=== PATIENT | male | born 1955 | race Caucasian/White ===

== ENCOUNTER 2023-08-25 16:14 | Observation (INO) ==
[2023-08-25] MEDS ORDERED: VENTOLIN HFA IH ONE (17:12)
[2023-08-25] MEDS ORDERED: MUCINEX PO ONE (17:12)
--- NOTE | 2023-08-25 17:14 | ED.PDOC ---
General ED Provider: Dr. BAIRON FONSECA DO Chief Complaint: Respiratory Complaint Stated Complaint: Patient is a 67 yo M here for sob patient reports 2 days of symptoms No falls or injuries No recent surgeries no hemoptysis He quit smoking in 2006, no home oxygen no wheezing Patient stable speaking in full senteces on room air spo2 92% improved to 95% with 2 L Time Seen by Provider: 08/25/23 17:05 Primary Care Provider: SONDRA MASCORRO Nursing and Triage Documentation Reviewed and Agree: Yes What is Opioid Naive?: *Opioid Naive implies the patient is not already taking opioids or not chronically receiving opioids on a daily basis. *PRN dosing is not "usually" associated with tolerance. *Patients are at higher risk of over-sedation and aspiration. What is Opioid Tolerant?: *Opioid Tolerance implies less than the expected response to an opioid. *Acquired tolerance is defined by the patient taking 60mg of oral morphine daily (or equianalgesic dose of another opioid) for 1 week or more. *Often associated with chronic pain. *May take more than usual dose to achieve desired pain control. Review of Systems Review Of Systems Constitutional: Denies Chills or Fever Eyes: Denies Blindness or Foreign body sensation Ears, Nose, Mouth, Throat: Denies Ear pain, Nose pain, Mouth swelling, Loose teeth or Throat pain Respiratory: Reports Shortness of Breath; Denies Cough or Wheezing Cardiac: Denies Chest pain, Palpitations or Syncope GI: Denies Abdominal pain, Constipated or Diarrhea : Denies Burning or Discharge Musculoskeletal: Denies Back pain or Muscle stiffness Skin: Denies Bruising or Dryness Neurological: Denies Anxiety or Depressed Endocrine: Reports No symptoms Hematologic/Lymphatic: Reports No symptoms All Other Systems: Reviewed and Negative Physical Exam Physical Exam Appearance: Reports Well-appearing and Obese Ill-appearing: Not Applicable Pain Distress: Not Applicable Eyes: Reports ERICA and EOMI ENT: Reports Ears normal, Nose normal and Oropharynx normal Neck: Supple Respiratory: Reports Airway patent and Breath sounds clear; Denies Wheezes or Retractions Cardiovascular: Reports RRR and Pulses normal GI/: Reports Soft and Nontender Musculoskeletal: Reports Normal strength and ROM intact Skin: Reports Warm and Dry Neurological: Reports Sensation intact and Motor intact Psychiatric: Reports Affect appropriate and Mood appropriate Interpretation EKG Interpretation EKG Interpretation By: ED Physician Time of EKG #1: 17:34 Interpretation: NSR rate 93 no stemi QT wnl Course Course 08/25/23 17:44 08/25/23 17:44 Orders, Labs, Meds: Lab Review 08/25/23 08/25/23 08/25/23 17:21 17:33 17:44 WBC 7.94 RBC 5.29 Hgb 15.3 Hct 46.8 MCV 88.5 MCH 28.9 MCHC 32.7 RDW Coeff of Cynthia 13.4 Plt Count 308 Immature Gran % (Auto) 0.4 Neut % (Auto) 67.7 Lymph % (Auto) 19.4 [place] % (Auto) 7.8 Eos % (Auto) 4.2 Baso % (Auto) 0.5 Neut # (Auto) 5.4 Lymph # (Auto) 1.5 [place] # (Auto) 0.6 Eos # (Auto) 0.3 Baso # (Auto) 0.0 Immature Gran # (Auto) 0.0 Puncture Site [place] Excess 3.3 H O2 Saturation 93.4 L ABG pH 7.48 H ABG pCO2 36.0 ABG pO2 63.0 L ABG HCO3 26.8 ABG Total CO2 27.9 H Reinier Test Pos Hemoglobin 1.0 Oxyhemoglobin 90.6 L Carboxyhemoglobin 2.5 H Total Hemoglobin 15.5 FiO2 % 21.0 Sodium 135.8 Potassium 3.80 Chloride 97.0 L Carbon Dioxide 31.4 H Anion Gap 11.20 BUN 10.2 Creatinine 0.84 Estimated GFR (MDRD) 91.00 BUN/Creatinine Ratio 12.14 Glucose 177.5 H Lactic Acid 1.58 Calcium 9.72 Total Bilirubin 0.97 AST 100.3 H ALT 122.9 H Alkaline Phosphatase 120.0 H Total Creatine Kinase 111.3 Troponin I < 0.012 Total Protein 8.97 H Albumin 4.66 Globulin 4.31 Albumin/Globulin Ratio 1.08 Influ A Molecular Assay Negative by naat Influ B Molecular Assay Negative by naat RSV Antigen Negative by naat SARS CoV-2 RNA Rapid CARLA Negative Orders Category Date Time Status ADMIT OBSERVATION [PLACE PATIENT OBSERVATION] .TO ADMISSION 08/25/23 19:58 Active MEDSURG (MONITORED BED) ABG DRAW REQUEST Stat CARDIO 08/25/23 17:23 Completed EKG-(ED ONLY) Stat CARDIO 08/25/23 17:22 Completed NEBULIZER TREATMENT Routine CARDIO 08/25/23 20:13 Ordered OXYGEN Routine CARDIO 08/25/23 20:12 Ordered ACTIVITY .Early Mobilization for VTE Prevention CARE 08/25/23 20:11 Active GIVE HS SNACK 2100 CARE 08/25/23 20:12 Active INTAKE & OUTPUT Q8HR CARE 08/25/23 20:11 Active NPO REMINDER: IMAGING ONCE CARE 08/25/23 17:22 Active TELEMETRY MONITORING TELE CARE 08/25/23 19:58 Active VITAL SIGNS Q4HR CARE 08/25/23 20:11 Active ADA 1800 HALLE. DIET DIETARY 08/26/23 Breakfast Ordered HS SNACK DIETARY 08/25/23 Dinner Ordered ABG COOX Stat LAB 08/25/23 17:33 Completed BLOOD CULTURE Stat LAB 08/25/23 20:04 Received CBC W/ AUTO DIFF DAILY@0600 LAB 08/26/23 06:00 Ordered CBC W/ AUTO DIFF DAILY@0600 LAB 08/27/23 06:00 Ordered CBC W/ AUTO DIFF Stat LAB 08/25/23 17:44 Completed COMPREHENSIVE METABOLIC PANEL DAILY@0600 LAB 08/26/23 06:00 Ordered COMPREHENSIVE METABOLIC PANEL DAILY@0600 LAB 08/27/23 06:00 Ordered COMPREHENSIVE METABOLIC PANEL Stat LAB 08/25/23 17:44 Completed CREATINE KINASE Stat LAB 08/25/23 17:44 Completed FLU A & B MOLECULAR [FLU A/B MOLECULAR] Stat LAB 08/25/23 17:21 Completed LACTIC ACID Stat LAB 08/25/23 17:44 Completed RSV Stat LAB 08/25/23 17:21 Completed SARS COV-2 RNA RAPID CARLA Stat LAB 08/25/23 17:21 Completed TROPONIN I Stat LAB 08/25/23 17:44 Completed Acetaminophen [Tylenol] Meds 08/25/23 20:11 Active 650 mg PO Q4H PRN Albuterol Sulfate 0.083% Neb [Albuterol 0.083% Neb] Meds 08/25/23 20:11 Active 2.5 mg NEB RTQID PRN Albuterol Sulfate [Ventolin Hfa] Meds 08/25/23 17:12 Discontinued 2 puff IH ONCE ONE Azithromycin Inj [Zithromax] 500 mg Meds 08/25/23 19:46 Discontinued 0.9 % Sodium Chloride [Sodium Chloride] 250 ml IV ONCE Azithromycin Inj [Zithromax] 500 mg Meds 08/26/23 20:00 Active 0.9 % Sodium Chloride [Sodium Chloride] 250 ml IV Q24H Ceftriaxone/D5w 1 gm Premix [Rocephin 1 gm/50 ml D5w] Meds 08/25/23 19:46 Discontinued 1 gm in 50 ml IV ONCE Ceftriaxone/D5w 1 gm Premix [Rocephin 1 gm/50 ml D5w] Meds 08/26/23 20:00 Active 1 gm in 50 ml IV Q24H Guaifenesin [Mucinex] Meds 08/25/23 17:12 Discontinued 600 mg PO ONCE ONE Ipratropium/Albuterol Neb [Duoneb] Meds 08/26/23 00:00 Active 3 ml NEB RTQ6H Methylprednisolone Sod Succ/Pf [Solu-Medrol 40 mg] Meds 08/25/23 20:30 Active 40 mg IVP Q8H Ondansetron HCl/Pf [Zofran 4 mg/2 ml] Meds 08/25/23 20:11 Active 4 [address] IVP Q[address]H PRN CT CHEST PE PROTOCOL Stat RADS 08/25/23 17:22 Completed Medications Generic Name Dose Route Start Last Admin Trade Name Freq PRN Reason Stop Dose Admin Acetaminophen 650 mg 08/25/23 20:11 Acetaminophen 325 Mg Tablet PO Q4H PRN Mild Pain Albuterol Sulfate 2.5 mg 08/25/23 20:11 Albuterol Sulfate 0.083% Vial.Neb NEB RTQID PRN Wheezing Albuterol/Ipratropium 3 ml 08/26/23 00:00 Ipratropium/Albuterol Vial.Neb NEB RTQ6H JAYE CEFTRIAXONE/D5W 1 GM PREMIX 1 gm in 50 mls @ 75 mls/hr 08/26/23 20:00 Rocephin 1 Gm/50 Ml D5w IV 08/29/23 19:59 Q24H JAYE Azithromycin 500 mg/ Sodium 250 mls @ 250 mls/hr 08/26/23 20:00 Chloride IV 08/29/23 19:59 Q24H JAYE Methylprednisolone Sodium Succinate 40 mg 08/25/23 20:30 08/25/23 20:43 Methylprednisolone Sod Succ/Pf 40 Mg/Ml Vial IVP 40 mg Q8H JAYE Administration Ondansetron HCl 4 mg 08/25/23 20:11 Ondansetron Hcl/Pf 4 Mg/2 Ml Sdv IVP Q6H PRN Nausea / Vomiting Discontinued Medications Generic Name Dose Route Start Last Admin Trade Name Freq PRN Reason Stop Dose Admin Albuterol Sulfate 2 puff 08/25/23 17:12 08/25/23 17:56 Albuterol Sulfate 8 Gm Inhaler IH 08/25/23 17:13 2 puff ONCE ONE Administration Guaifenesin 600 mg 08/25/23 17:12 08/25/23 17:56 Guaifenesin 600 Mg Tablet.Er PO 08/25/23 17:13 600 mg ONCE ONE Administration CEFTRIAXONE/D5W 1 GM PREMIX 1 gm in 50 mls @ 100 mls/hr 08/25/23 19:46 08/25/23 20:40 Rocephin 1 Gm/50 Ml D5w IV 08/25/23 20:15 100 mls/hr ONCE ONE Administration Azithromycin 500 mg/ Sodium 250 mls @ 250 mls/hr 08/25/23 19:46 Chloride IV 08/25/23 20:45 ONCE ONE Vital Signs: Temp Pulse Resp BP Pulse Ox 08/25/23 17:12 97.6 F 99 18 171/86 H 90 L MDM: patient is a 67 yo M here for sob Patient afebrile and hypoxic 92% improved to 95%+ with 2 L NC Hx from patient chart review by me Exam concerning for hypoxia 3+ labs and 2 image results reviewed by me Consults to Hospitalist agree with admission for BL pneumonia with hypoxia WDX: BL Pneumonia, hypoxia, acute moderate complexity DDX: I considered shock, Covid 19, PE but these are less likely SDOH: Patient will improve with further care while admitted All questions answered patient admitted stable on 2 L NC Rocephin and azithromycin administered in the ER Discharge Plan Discharge Patient Disposition: PLACED OBSERVATION Discharge Problem: Hypoxia, Discomfort, Weakness, Pneumonia Did you review [place] 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
[2023-08-25 17:38] LABS: SARS COV-2 RNA RAPID NAAT NEGATIVE (NEGATIVE)
[2023-08-25 17:39] LABS: MOLECULAR FLU A NEGATIVE BY NAAT (NEGATIVE); MOLECULAR FLU B NEGATIVE BY NAAT (NEGATIVE)
[2023-08-25 17:42] LABS: RSV MOLECULAR NEGATIVE BY NAAT (NEGATIVE)
[2023-08-25 17:48] LABS: ABG O2 HGB 90.6 % (95-100); ABG PH 7.48 (7.35-7.45); BEecf 3.3 (-2.0-3.0); COHb 2.5 (0.5-1.5); HCO3 26.8 (21-28); TCO2 27.9 (19-24); sO2 93.4 % (94-98); tHb 15.5 g/dl (11.7-17.4)
[2023-08-25 17:49] LABS: BASOPHILS % (AUTO) 0.5 % (0.0-3.0); EOSINOPHILS # (AUTO) 0.3 K/ul (0.0-0.7); EOSINOPHILS % (AUTO) 4.2 % (0.0-7.0); HEMATOCRIT 46.8 % (42.0-52.0); HEMOGLOBIN 15.3 g/dl (14.0-18.0); IMMATURE GRANULOCYTE % (AUTO) 0.4 % (0.0-5.0); LYMPHOCYTES # (AUTO) 1.5 K/uL (0.60-3.4); LYMPHOCYTES % (AUTO) 19.4 (10.0-50.0); MEAN CORPUSCULAR HEMOGLOBIN 28.9 pg (27.0-31.0); MEAN CORPUSCULAR HGB CONC 32.7 (31.8-35.4); MEAN CORPUSCULAR VOLUME 88.5 fl (80.0-94.0); MONOCYTES # (AUTO) 0.6 K/uL (0.4-2.0); MONOCYTES % (AUTO) 7.8 (0-10); NEUTROPHILS # (AUTO) 5.4 K/ul (2.0-6.9); NEUTROPHILS % (AUTO) 67.7 % (42.2-75.2); PLATELET COUNT 308 10^3/uL (140-440); RDW COEFFICIENT OF VARIATION 13.4 % (11.6-14.8); RED BLOOD COUNT 5.29 10^6/ul (4.70-6.10); WHITE BLOOD COUNT 7.94 K/ul (4.2-10.2)
[2023-08-25 18:15] LABS: ALANINE AMINOTRANSFERASE 122.9 U/L (0-50); ALBUMIN 4.66 g/dL (3.5-5.0); ASPARTATE AMINO TRANSFERASE 100.3 U/L (17-59); BILIRUBIN,TOTAL 0.97 mg/dL (0.2-1.3); BLOOD UREA NITROGEN 10.2 mg/dL (9-20); CALCIUM 9.72 mg/dL (8.4-10.2); CARBON DIOXIDE 31.4 mmol/L (22-30.0); CREATINE KINASE 111.3 U/L (55-170); CREATININE 0.84 mg/dL (0.60-1.10); GLUCOSE 177.5 mg/dL (74-106); SODIUM 135.8 mmol/L (134.5-145); TOTAL PROTEIN 8.97 g/dL (6.3-8.2)
[2023-08-25 18:27] LABS: TROPONIN I < 0.012 ng/ml (0.0000-0.120)
--- NOTE | 2023-08-25 19:31 | CT ---
EXAM: CT ANGIOGRAPHY CHEST (PE PROTOCOL) HISTORY: Hypoxia, viral syndrome TECHNIQUE: CTA chest with intravenous contrast. PE protocol. Multiplanar images were provided with MIP images and 3-D reconstructions. COMPARISON: None FINDINGS: No pulmonary arterial thromboembolism. There is mild aortic atherosclerotic disease. A f ew coronary artery calcifications are suggested. Heart size is within normal limits. No pericardial effusion. Nonspecific mediastinal and hilar lymph nodes are present. Tiny sliding hiatal hernia. A few fluffy bibasilar infiltrates are seen consistent with pneumonia. Lungs are otherwise clear. N o pleural fluid, vascular congestion or pneumothorax. Mild apical paraseptal emphysema. Bones revea l no acute abnormality. IMPRESSION: 1. No pulmonary arterial thromboembolism. 2. A few fluffy bibasilar infiltrates are seen consistent with pneumonia. Lungs are otherwise clear . - - - - - All CT scans are performed using dose optimization techniques as appropriate to the performed exam an d include at least one of the following: Automated exposure control, adjustment of the mA and/or kV according t o size, and the use of iterative reconstruction technique.
[2023-08-25] MEDS ORDERED: ROCEPHIN 1 GM/50 ML D5W 1 GM/50 ML BAG IV ONE (19:46)
[2023-08-25] MEDS ORDERED: ZITHROMAX 500 MG in SODIUM CHLORIDE 250 ML IV ONE (19:46)
[2023-08-25] MEDS ORDERED: ALBUTEROL 0.083% NEB NEB PRN (20:11)
[2023-08-25] MEDS ORDERED: ZOFRAN 4 MG/2 ML IVP PRN (20:11)
[2023-08-25] MEDS ORDERED: TYLENOL PO PRN (20:11)
[2023-08-25] MEDS: SOLU-MEDROL 40 MG IVP SCH (20:43)
[2023-08-25 22:13] VITALS: BMI 24.7
[2023-08-25] MEDS: DUONEB NEB SCH (23:23)
[2023-08-26] MEDS: SOLU-MEDROL 40 MG IVP SCH (04:57)
[2023-08-26] MEDS: DUONEB NEB SCH ×2 (05:02→11:00)
[2023-08-26 05:26] LABS: HEMATOCRIT 45.7 % (42.0-52.0); HEMOGLOBIN 14.6 g/dl (14.0-18.0); IMMATURE GRANULOCYTE % (AUTO) 0.6 % (0.0-5.0); LYMPHOCYTES # (AUTO) 1.1 K/uL (0.60-3.4); MEAN CORPUSCULAR HEMOGLOBIN 28.5 pg (27.0-31.0); MEAN CORPUSCULAR HGB CONC 31.9 (31.8-35.4); MEAN CORPUSCULAR VOLUME 89.3 fl (80.0-94.0); MONOCYTES # (AUTO) 0.2 K/uL (0.4-2.0); MONOCYTES % (AUTO) 2.3 (0-10); NEUTROPHILS # (AUTO) 5.8 K/ul (2.0-6.9); NEUTROPHILS % (AUTO) 82.1 % (42.2-75.2); PLATELET COUNT 273 10^3/uL (140-440); RDW COEFFICIENT OF VARIATION 13.2 % (11.6-14.8); RED BLOOD COUNT 5.12 10^6/ul (4.70-6.10); WHITE BLOOD COUNT 7.07 K/ul (4.2-10.2)
[2023-08-26 05:33] VITALS: RESP 20
[2023-08-26 05:38] LABS: ALBUMIN 4.73 g/dL (3.5-5.0); ALKALINE PHOSPHATASE 108.3 U/L (56-119); ASPARTATE AMINO TRANSFERASE 83.5 U/L (17-59); BILIRUBIN,TOTAL 0.73 mg/dL (0.2-1.3); BLOOD UREA NITROGEN 11.9 mg/dL (9-20); CALCIUM 9.81 mg/dL (8.4-10.2); CARBON DIOXIDE 30.9 mmol/L (22-30.0); CHLORIDE 99.2 mmol/L (98-107); CREATININE 0.77 mg/dL (0.60-1.10); GLUCOSE 241.3 mg/dL (74-106); POTASSIUM 4.43 mmol/L (3.5-5.1); SODIUM 137.8 mmol/L (134.5-145); TOTAL PROTEIN 9.03 g/dL (6.3-8.2)
[2023-08-26] MEDS ORDERED: HUMALOG SUBCUT PRN (09:44)
[2023-08-26] MEDS ORDERED: LEVOTHYROXINE 100 MCG PO SCH ×2 (09:45)
[2023-08-26] MEDS ORDERED: NON-FORMULARY MEDICATION (Omeprazole 20 MG) PO SCH (09:45)
[2023-08-26] MEDS ORDERED: SYNTHROID PO SCH (10:00)
[2023-08-26] MEDS ORDERED: PRILOSEC PO SCH (10:00)
[2023-08-26 10:20] VITALS: BP 171/80; PULSE 75; TEMP 97.6
--- NOTE | 2023-08-26 12:56 | DCSUM ---
Hospital Provider Hospital Provider: MARU CANALES, [facility] Primary Care Physician Primary Care Physician: SONDRA SUBHA [facility] Course Vital Signs: Most Recent Vital Signs Temperature 97.6 F 08/26/23 10:00 Temperature Source Tympanic 08/26/23 10:00 Temperature Source Infrared 08/25/23 17:12 Pulse Rate 75 08/26/23 10:00 Respiratory Rate 20 08/26/23 10:00 Blood Pressure 171/80 H 08/26/23 10:00 Blood Pressure Mean 110 08/26/23 10:00 Blood Pressure Left Arm 144/76 08/25/23 21:55 Blood Pressure Location Right Arm 08/26/23 10:00 Blood Pressure Position Sitting 08/26/23 10:00 O2 Sat by Pulse Oximetry 99 08/26/23 10:00 Oxygen Delivery Method Room Air 08/26/23 12:00 Oxygen Flow Rate 2 08/26/23 10:00 Height 6 ft 1 in 08/25/23 21:55 Weight 187 lb 5 oz 08/25/23 21:55 Telemetry Type Remote Telemetry 08/26/23 07:00 Telemetry Monitoring Continues 08/26/23 07:00 Telemetry Heart Rate 70 08/26/23 07:00 Telemetry SPO2 94 08/26/23 07:00 EKG DE Interval 0.11 L 08/26/23 07:00 EKG QRS Interval 0.06 08/26/23 07:00 Telemetry Strip Reading SR with PVC 08/26/23 07:00 Lab Results Last 24 Hours: 08/26/23 08/25/23 08/25/23 05:00 17:44 17:33 WBC 7.07 7.94 RBC 5.12 5.29 Hgb 14.6 15.3 Hct 45.7 46.8 MCV 89.3 88.5 MCH 28.5 28.9 MCHC 31.9 32.7 RDW Coeff of Cynthia 13.2 13.4 Plt Count 273 308 Immature Gran % (Auto) 0.6 0.4 Neut % (Auto) 82.1 H 67.7 Lymph % (Auto) 15.0 19.4 [place] % (Auto) 2.3 7.8 Eos % (Auto) 0.0 4.2 Baso % (Auto) 0.0 0.5 Neut # (Auto) 5.8 5.4 Lymph # (Auto) 1.1 1.5 [place] # (Auto) 0.2 L 0.6 Eos # (Auto) 0.0 0.3 Baso # (Auto) 0.0 0.0 Immature Gran # (Auto) 0.0 0.0 Puncture Site [place] Excess 3.3 H O2 Saturation 93.4 L ABG pH 7.48 H ABG pCO2 36.0 ABG pO2 63.0 L ABG HCO3 26.8 ABG Total CO2 27.9 H Reinier Test Pos Hemoglobin 1.0 Oxyhemoglobin 90.6 L Carboxyhemoglobin 2.5 H Total Hemoglobin 15.5 FiO2 % 21.0 Sodium 137.8 135.8 Potassium 4.43 3.80 Chloride 99.2 97.0 L Carbon Dioxide 30.9 H 31.4 H Anion Gap 12.13 11.20 BUN 11.9 10.2 Creatinine 0.77 0.84 Estimated GFR (MDRD) 101.00 91.00 BUN/Creatinine Ratio 15.45 12.14 Glucose 241.3 H D 177.5 H Lactic Acid 1.58 Calcium 9.81 9.72 Total Bilirubin 0.73 0.97 AST 83.5 H 100.3 H ALT 111.0 H 122.9 H Alkaline Phosphatase 108.3 120.0 H Total Creatine Kinase 111.3 Troponin I < 0.012 Total Protein 9.03 H 8.97 H Albumin 4.73 4.66 Globulin 4.30 4.31 Albumin/Globulin Ratio 1.10 1.08 TSH 0.827 Influ A Molecular Assay Influ B Molecular Assay RSV Antigen SARS CoV-2 RNA Rapid CARLA 08/25/23 17:21 WBC RBC Hgb Hct MCV MCH MCHC RDW Coeff of Cynthia Plt Count Immature Gran % (Auto) Neut % (Auto) Lymph % (Auto) [place] % (Auto) Eos % (Auto) Baso % (Auto) Neut # (Auto) Lymph # (Auto) [place] # (Auto) Eos # (Auto) Baso # (Auto) Immature Gran # (Auto) Puncture Site Base Excess O2 Saturation ABG pH ABG pCO2 ABG pO2 ABG HCO3 ABG Total CO2 Reinier Test Hemoglobin Oxyhemoglobin Carboxyhemoglobin Total Hemoglobin FiO2 % Sodium Potassium Chloride Carbon Dioxide Anion Gap BUN Creatinine Estimated GFR (MDRD) BUN/Creatinine Ratio Glucose Lactic Acid Calcium Total Bilirubin AST ALT Alkaline Phosphatase Total Creatine Kinase Troponin I Total Protein Albumin Globulin Albumin/Globulin Ratio TSH Influ A Molecular Assay Negative by naat Influ B Molecular Assay Negative by naat RSV Antigen Negative by naat SARS CoV-2 RNA Rapid CARLA Negative Discharge Instructions Discharge Planning: Discharge Planning > 40 minutes If patient is discharged with left ventricular systolic dysfunction: Discharged with a beta rochelle? [] If no, why not? [] Discharged with an ron/arb? [] If no, why not? [] Discharge Medications: Medications at Discharge (Home Meds & RX) glipizide 5 mg PO DAILY 08/25/23 guaifenesin 600 mg tablet, extended release 12 hr (Mucinex) 600 mg PO BID #14 tabs 08/25/23 levothyroxine 100 mcg PO .QDAC 08/25/23 metFORMIN 1,000 mg PO DAILY 08/25/23 omeprazole 20 mg PO .QDAC 08/25/23 Discharge Plan Discharge Discharge Orders: Discharge Patient (ONCE); Ordered 08/26/23 Ordered By: TYREE BLANC Activity Restrictions/Additional Instructions: Diabetic Diet Activity as tolerated Follow-up with PCP next week Medications: Medrol dose pack - take as directed until complete Keflex BID x 9 days Albuterol inhaler 2 puffs q4h as needed for shortness of breath Instructions: Community Acquired Pneumonia (GEN) Patient Disposition: HOME SELF-CARE Prescriptions: New cephalexin 500 mg capsule 500 mg PO BID Qty: 20 0RF methylprednisolone [Medrol (Don)] 4 mg tablets,dose pack See Rx Instructions .ROUTE .COMPLEX Qty: 21 0RF Rx Instructions: orally per package directions albuterol sulfate 90 mcg/actuation aerosol powdr breath activated 2 inh inhalation Q4-6H PRN (Reason: shortness of breath) Qty: 1 0RF Continued metFORMIN capsule 1,000 mg PO DAILY glipizide 5 mg PO DAILY omeprazole 20 mg PO .QDAC levothyroxine [Synthroid] 100 mcg PO .QDAC Did you review [place] TRANSPLANT NURSE for ALL controlled substances?: No Discussed opioids are addictive and Narcan is available by prescription or from pharmacy.: No Condition: Fair Referrals: SONDRA MASCORRO MD [Primary Care Provider] - 09/01/23 9:45 am Stand Alone Forms: Work/School Release ED
[2023-08-26] MEDS ORDERED: SOLU-MEDROL 40 MG IVP SCH (13:00)
--- NOTE | 2023-08-26 13:01 | PCM.SS ---
Provider Provider: MARU CANALES, [facility] Ad[facility] Date Admission Date: 08/25/23 Discharge Date Discharge Date: 08/26/23 Primary Care Physician Primary Care Physician: SONDRA MASCORRO Chief Complaint Reason For Visit: BI-LAT PNUEMONIA, HYPOXIA, WEAKNESS History of Present Illness History of Present Illness: Admitted 08/25/23 20:18, this 67 year old /WHITE/M that presented to the ER with complaints of shortness of breath and weakness. Patient reports he has been fatigued over the last month. Over the past week, he has had congestion and a cough with clear/white sputum. Yesterday, he became very short of breath and felt it was hard to take a deep breath. Denies any fever, chills, chest pain, N/V/D. O2 sat in the ER was dropping down to 90s. ABG showed PO2 in 60s. Admitted to observation. [facility] Medical History Hernia K46.9 - Unspecified abdominal hernia without obstruction or gangrene (ICD- 10) Diabetes E11.9 - Type 2 diabetes mellitus without complications (ICD-10) Hypothyroid E03.9 - Hypothyroidism, unspecified (ICD-10) Surgical History History of cholecystectomy Z90.49 - Acquired absence of other specified parts of digestive tract (ICD- 10) Family History DAUGHTER No problems noted. FATHER Myocardial infarct Bladder cancer MATERNAL GRANDMOTHER Diabetes Social History Smoking and tobacco status: Former smoker Tobacco: How many years used: 30 (QUIT 2006) Alcohol intake: current Substance use type: marijuana Medications Mecications: Medications at Discharge (Home Meds & RX) glipizide 5 mg PO DAILY 08/25/23 levothyroxine 100 mcg PO .QDAC 08/25/23 metFORMIN 1,000 mg PO DAILY 08/25/23 omeprazole 20 mg PO .QDAC 08/25/23 albuterol sulfate 90 mcg/actuation breath activated powder inhaler 2 inh in halation Q4-6H PRN shortness of breath #1 ea 08/26/23 cephalexin 500 mg capsule 500 mg PO BID #20 caps 08/26/23 methylprednisolone 4 mg tablets in a dose pack (Medrol (Don)) See Rx Instructions PO .COMPLEX #21 ea 08/26/23 Allergies Allergies Allergy/AdvReac Type Severity Reaction Status Date / Time No Known Allergies Allergy Unverified 08/25/23 17:09 Review of Systems Constitutional: Reports Fatigue Head: Reports Normocephalic and Atraumatic Eyes: Reports No symptoms Ears: Reports No symptoms Nose: Reports Congestion Mouth: Reports No symptoms Throat: Reports No symptoms Cardiovascular: Reports No symptoms Respiratory: Reports Cough and Shortness of air Gastrointestinal: Reports No symptoms Genitourinary: Reports No Symptoms Musculoskeletal: Reports No symptoms Endocrine: Reports No symptoms Hematology: Reports No symptoms Immunology: Reports No symptoms Neurological: Reports No symptoms Psychiatric: Reports No symptoms Physical Examination Appearance: Positive No Apparent Distress and Alert and Oriented x3 Head: Positive Normocephalic and Atraumatic Eyes: Positive ERICA Neck: Positive Supple, Non-Tender and Trachea Midline Heart: Positive RRR and No Murmurs Respiratory: Positive Airway patent, Breath Sounds Clear, Bilaterally, Breath Sounds Equal and Respirations Nonlabored GI/: Positive Soft, Nontender, Bowel sounds normal, No Distention, No masses and No Organomegaly Extremities: Positive Pedal Pulses Palpable Bilaterally Neurological: Positive Sensation Intact, Motor Intact, Reflexes Intact, Alert and Oriented Psychiatric: Positive Normal Judgement Vital Signs (Last 4 Hours) Vital Signs Last 4 Hours: Vital Signs: Last 4 Hours 08/26/23 10:00 08/26/23 10:00 08/26/23 10:00 Temperature 97.6 F Temperature Source Tympanic Pulse Rate 75 Respiratory Rate 20 Blood Pressure 171/80 H Blood Pressure Mean 110 Blood Pressure Location Right Arm Blood Pressure Position Sitting O2 Sat by Pulse Oximetry 94 L Oxygen Delivery Method Room Air Nasal Cannula Room Air Oxygen Flow Rate 2 08/26/23 10:00 08/26/23 10:53 08/26/23 12:00 Temperature Temperature Source Pulse Rate Respiratory Rate Blood Pressure Blood Pressure Mean Blood Pressure Location Blood Pressure Position O2 Sat by Pulse Oximetry 99 Oxygen Delivery Method Room Air Room Air Room Air Oxygen Flow Rate Labs This Visit Labs This Visit: Labs This Visit 08/25/23 08/25/23 08/25/23 17:21 17:33 17:44 WBC 7.94 RBC 5.29 Hgb 15.3 Hct 46.8 MCV 88.5 MCH 28.9 MCHC 32.7 RDW Coeff of Cynthia 13.4 Plt Count 308 Immature Gran % (Auto) 0.4 Neut % (Auto) 67.7 Lymph % (Auto) 19.4 [place] % (Auto) 7.8 Eos % (Auto) 4.2 Baso % (Auto) 0.5 Neut # (Auto) 5.4 Lymph # (Auto) 1.5 [place] # (Auto) 0.6 Eos # (Auto) 0.3 Baso # (Auto) 0.0 Immature Gran # (Auto) 0.0 Puncture Site [employer] [employer] Excess 3.3 H O2 Saturation 93.4 L ABG pH 7.48 H ABG pCO2 36.0 ABG pO2 63.0 L ABG HCO3 26.8 ABG Total CO2 27.9 H Reinier Test Pos Hemoglobin 1.0 Oxyhemoglobin 90.6 L Carboxyhemoglobin 2.5 H Total Hemoglobin 15.5 FiO2 % 21.0 Sodium 135.8 Potassium 3.80 Chloride 97.0 L Carbon Dioxide 31.4 H Anion Gap 11.20 BUN 10.2 Creatinine 0.84 Estimated GFR (MDRD) 91.00 BUN/Creatinine Ratio 12.14 Glucose 177.5 H Lactic Acid 1.58 Calcium 9.72 Total Bilirubin 0.97 AST 100.3 H ALT 122.9 H Alkaline Phosphatase 120.0 H Total Creatine Kinase 111.3 Troponin I < 0.012 Total Protein 8.97 H Albumin 4.66 Globulin 4.31 Albumin/Globulin Ratio 1.08 TSH Influ A Molecular Assay Negative by naat Influ B Molecular Assay Negative by naat RSV Antigen Negative by naat SARS CoV-2 RNA Rapid CARLA Negative 08/26/23 05:00 WBC 7.07 RBC 5.12 Hgb 14.6 Hct 45.7 MCV 89.3 MCH 28.5 MCHC 31.9 RDW Coeff of Cynthia 13.2 Plt Count 273 Immature Gran % (Auto) 0.6 Neut % (Auto) 82.1 H Lymph % (Auto) 15.0 [place] % (Auto) 2.3 Eos % (Auto) 0.0 Baso % (Auto) 0.0 Neut # (Auto) 5.8 Lymph # (Auto) 1.1 [place] # (Auto) 0.2 L Eos # (Auto) 0.0 Baso # (Auto) 0.0 Immature Gran # (Auto) 0.0 Puncture Site Base Excess O2 Saturation ABG pH ABG pCO2 ABG pO2 ABG HCO3 ABG Total CO2 Reinier Test Hemoglobin Oxyhemoglobin Carboxyhemoglobin Total Hemoglobin FiO2 % Sodium 137.8 Potassium 4.43 Chloride 99.2 Carbon Dioxide 30.9 H Anion Gap 12.13 BUN 11.9 Creatinine 0.77 Estimated GFR (MDRD) 101.00 BUN/Creatinine Ratio 15.45 Glucose 241.3 H D Lactic Acid Calcium 9.81 Total Bilirubin 0.73 AST 83.5 H ALT 111.0 H Alkaline Phosphatase 108.3 Total Creatine Kinase Troponin I Total Protein 9.03 H Albumin 4.73 Globulin 4.30 Albumin/Globulin Ratio 1.10 TSH 0.827 Influ A Molecular Assay Influ B Molecular Assay RSV Antigen SARS CoV-2 RNA Rapid CARLA Imaging Imaging: EXAM: CT ANGIOGRAPHY CHEST (PE PROTOCOL) HISTORY: Hypoxia, viral syndrome TECHNIQUE: CTA chest with intravenous contrast. PE protocol. Multiplanar images were provided with MIP images and 3-D reconstructions. COMPARISON: None FINDINGS: No pulmonary arterial thromboembolism. There is mild aortic atherosclerotic disease. A few coronary artery calcifications are suggested. Heart size is within normal limits. No pericardial effusion. Nonspecific mediastinal and hilar lymph nodes are present. Tiny sliding hiatal hernia. A few fluffy bibasilar infiltrates are seen consistent with pneumonia. Lungs are otherwise clear. No pleural fluid, vascular congestion or pneumothorax. Mild apical paraseptal emphysema. Bones reveal no acute abnormality. IMPRESSION: 1. No pulmonary arterial thromboembolism. 2. A few fluffy bibasilar infiltrates are seen consistent with pneumonia. Lungs are otherwise clear. Review Review Statement: I have independently reviewed and interpreted the labs/EKGs/imaging that were ordered by the ER provider. I have reviewed all outside records that are available currently in our EMR including imaging/notes/labs from previous visits. Plan Reccomendations/Plan: 1. Acute Hypoxic Respiratory Failure in the setting of Community Acquired Pneumonia - weaned off oxygen, received azithromycin and rocephin as well as steroids and nebs. Feeling better today and requesting to go home. D/c with keflex, medrol pack, and albuterol All home medications continued with no changes made. Additional Planning: Case discussed with ED Physician, Dr. Sheikh. DVT Prophylaxis: Up ad shabana Disposition: Admit to: Med/surg Observation Full Code Discussed Plan of Care with Dr. Belle Green. If patient discharged with Left Ventricular Systolic Dysfunction: NA Discharged with a beta rochelle? [] If no, why not? [] Discharged with an ron/arb? [] If no, why not? [] DX: COMMUNITY ACQUIRED PNEUMONIA RX: KEFLEX, MEDROL PACK, ALBUTEROL DIABETIC DIET ACTIVITY TOLERATED FOLLOW-UP WITH PCP NEXT WEEK Review With Patient Reviewed with Patient and Family: Patient and family have been counseled on condition and care plan and have no immediate questions. I have personally discussed and reviewed the patient's visit/current labs/imaging/decision making with Dr. Belen Green, my supervising attending. Total number of minutes spent with patient 85 min. More than 50% of the time spent with this patient was devoted to counseling and coordination of care. Time of Admission:08/25/23 20:18 Time of Discharge: 08/26/23 13:01 Discharge Plan Discharge Discharge Orders: Discharge Patient (ONCE); Ordered 08/26/23 Ordered By: TYREE LBANC Activity Restrictions/Additional Instructions: Diabetic Diet Activity as tolerated Follow-up with PCP next week Medications: Medrol dose pack - take as directed until complete Keflex BID x 9 days Albuterol inhaler 2 puffs q4h as needed for shortness of breath Instructions: Community Acquired Pneumonia (GEN) Patient Disposition: HOME SELF-CARE Prescriptions: New cephalexin 500 mg capsule 500 mg PO BID Qty: 20 0RF methylprednisolone [Medrol (Don)] 4 mg tablets,dose pack See Rx Instructions .ROUTE .COMPLEX Qty: 21 0RF Rx Instructions: orally per package directions albuterol sulfate 90 mcg/actuation aerosol powdr breath activated 2 inh inhalation Q4-6H PRN (Reason: shortness of breath) Qty: 1 0RF Continued metFORMIN capsule 1,000 mg PO DAILY glipizide 5 mg PO DAILY omeprazole 20 mg PO .QDAC levothyroxine [Synthroid] 100 mcg PO .QDAC Did you review [place] HEAD UP OPERATOR HELPER for ALL controlled substances?: No Discussed opioids are addictive and Narcan is available by prescription or from pharmacy.: No Condition: Fair Referrals: SONDRA MASCORRO MD [Primary Care Provider] - 09/01/23 9:45 am Stand Alone Forms: Work/School Release ED
[2023-08-26] MEDS ORDERED: ZITHROMAX 500 MG in SODIUM CHLORIDE 250 ML IV SCH (21:00)
[2023-08-26] MEDS ORDERED: ROCEPHIN 1 GM/50 ML D5W 1 GM/50 ML BAG IV SCH (21:00)
== END 2023-08-26 13:20 | disposition home or self-care (01) ==
LOC: MEDSURG B 16:14 → ED 16:14 → MEDSURG B 21:52
PROVIDERS: ADMIT Hospitalist; ATTEND Nurse Practitioner Family
DX: R09.02 Hypoxemia; R53.83 Other fatigue; Z20.822 Contact with and (suspected) exposure to COVID-19; J18.9 Pneumonia, unspecified organism; R53.1 Weakness